=== PATIENT | female | born 1980 | race African-American/Black ===

== ENCOUNTER 2016-08-16 17:40 | Emergency (ER) | payer MEDICAID ==
[~2016-08-16 17:40] MED LIST: AMOX TR-K CLV1 EAC2 PO; AUGMENTIN 875-1 EAC2 PO; BLOOD PRESSURE MED PO; BUTALB-ACETAMI1 EAC1 PO; CLINDAMYCIN HC300 MG PO; COZAAR100 MG PO; HYZAAR 100-251 EACH PO; NORCO 5/325 TAB1 TAB PO; NORVASC5 M2 PO; NORVASC5 MG PO; PEN-VEE K500 MG PO; POTASSIUM CHLO20 ME3 PO; TENORMIN50 MG PO; TOPAMAX25 M2 PO; [UNRECOGNIZED DRUG - OTHER]
== END 2016-08-16 19:01 ==
LOC: EDMED 17:40
DX: S93.402A Sprain of unspecified ligament of left ankle, initial encounter (principal); I10 Essential (primary) hypertension; Z85.41 Personal history of malignant neoplasm of cervix uteri; Z88.5 Allergy status to narcotic agent; Z79.899 Other long term (current) drug therapy; X50.1XXA Overexertion from prolonged static or awkward postures, initial encounter; Y93.02 Activity, running; Y92.019 Unspecified place in single-family (private) house as the place of occurrence of the external cause; Y99.8 Other external cause status